=== PATIENT | female | born 1970 | race Two or more races ===

== ENCOUNTER 2018-09-08 22:50 | Inpatient (IN) | payer OTHER ==
[~2018-09-08] VITALS: Ht 175.3 cm; Wt 86.2 kg
[2018-09-08] MEDS ORDERED: ADDERALL 10 MG10 MG (23:00)
== END 2018-09-13 18:22 | disposition home or self-care (01) | DRG 386 ==
LOC: ER 22:50 → SURH 09-09 16:43 → SEC-K 09-09 16:43 → SURH 09-09 17:35
PROVIDERS: ADMIT Internal Medicine
PROC: BW21Y0Z Computerized Tomography (CT Scan) of Abdomen and Pelvis using Other Contrast, Unenhanced and Enhanced (ICD-10-PCS; principal; 2018-09-13)
DX: K50.00 Crohn's disease of small intestine without complications (principal); K35.890 Other acute appendicitis without perforation or gangrene; R63.0 Anorexia; K59.09 Other constipation; N20.0 Calculus of kidney; K57.30 Diverticulosis of large intestine without perforation or abscess without bleeding; D25.2 Subserosal leiomyoma of uterus